=== PATIENT | male | born 1935 | race Caucasian/White ===

== ENCOUNTER 2018-12-26 17:08 | Inpatient (IN) ==
[2018-12-26] MEDS ORDERED: Morphine Sulfate Inj 2 MG/ML Vial IV.PUSH ONE ×2 (19:11→20:45)
--- NOTE | 2018-12-26 19:28 | ED ---
HPI General Chief complaint: Urogenital-Male Stated complaint: bleeding complaint Time Seen by Provider: 12/26/18 18:52 Source: patient, RN notes reviewed and old records reviewed Mode of arrival: ambulatory Limitations: no limitations History of Present Illness HPI Narrative: 83-year-old male presents to the emergency department stating that he has bleeding from his penis and has been unable to urinate since 10 AM this morning. He had his left nephrostomy tube replaced today by Dr. Bustillos. Patient states he is due to have his left kidney removed by Dr. Voss on Monday. Reports bladder distention, current pain is 8/10. Patient has a mass of the left ureter with hydronephrosis and that is why he has nephrostomy tube. He states his suspect of his bladder cancer. He is not currently undergoing chemoradiation therapy. He states he had radiation therapy in the past for prostate cancer. Patient states he was given 3 days of Cipro, his last one was today. He has history of hypertension, hyperlipidemia currently on lisinopril and simvastatin. Moderate severity. MD Complaint: Reports other (Penile bleeding, urinary retention) Onset (ago): hour(s) (9) Duration: constant Location: Reports penis Severity: moderate Severity scale (1-10): 9 Quality: Reports aching Relieving factors: none Exacerbating factors: none Reports recent surgery Reports urinary retention; Denies discharge, swelling, mass, rash, blood in urine, dysuria, fever, nausea/vomiting and incontinence Related Data Home Medications Medication Instructions Recorded Confirmed lisinopril 20 mg PO DAILY 10/24/18 12/26/18 simvastatin 10 mg PO QPM 10/24/18 12/26/18 Previous Rx's Medication Instructions Recorded hydrocodone-acetaminophen [[place]] 1 tab PO Q4-6H PRN #10 tab 12/06/18 Allergies Allergy/AdvReac Type Severity Reaction Status Date / Time No Known Allergies Allergy Verified 12/06/18 16:57 Review of Systems ROS: all other systems reviewed are negative [facility] Medical History Medical History Gastric cancer (Acute) High cholesterol (Acute) Hydronephrosis (Acute) Hypertension (Acute) Melanoma (Acute) Prostate cancer (Acute) Social History Social History Substance History: No History of Abuse Second Hand Smoke Exposure: No Smoking Status: Never smoker Tobacco Type: Cigarettes How Often Do You Have a Drink Containing Alcohol: Never Recent Travel in [place] within the Last 8 Weeks: No Recent Out of Country Travel within the Last 8 Weeks: No Immunization History Tetanus Immunization: <5 Years Exam Narrative Exam Narrative: GENERAL: Well-nourished, well-developed elderly male patient, afebrile SKIN: Focused skin assessment warm/dry. HEAD: Normocephalic. Atraumatic EYES: No scleral icterus. No injection or drainage. NECK: Supple, trachea midline. No JVD or lymphadenopathy. CARDIOVASCULAR: Regular rate and rhythm without murmurs, gallops, or rubs. RESPIRATORY: Breath sounds equal bilaterally. No accessory muscle use. Lung sounds are clear to auscultation GASTROINTESTINAL: Abdomen soft, non-tender, nondistended. Patient has left nephrostomy tube in place. Bladder is distended on exam. MUSCULOSKELETAL: No cyanosis, or edema. BACK: Nontender without obvious deformity. No CVA tenderness. Course Initial Documented Vital Signs Temperature 98.1 F 12/26/18 17:16 Pulse Rate 103 H 12/26/18 17:16 Respiratory Rate 20 12/26/18 17:16 Blood Pressure 122/55 L 12/26/18 17:16 Pulse Oximetry 96 12/26/18 17:16 Last Documented Vital Signs Temperature 98.1 F 12/26/18 17:16 Pulse Rate 110 H 12/26/18 21:30 Respiratory Rate 20 12/26/18 21:30 Blood Pressure 176/91 H 12/26/18 21:30 Pulse Oximetry 98 12/26/18 21:30 Medical Decision Making [facility] Narrative Medical decision making narrative: 83-year-old male presents to the emergency department for evaluation of urinary retention, penile bleeding that started at 10 AM this morning after having his left nephrostomy tube changed today. Shipley catheter is placed. CBC shows slight anemia hemoglobin 10.7, hematocrit 32.0. CMP shows elevated BUN 19, creatinine 1.40. PTT is 31.4. PT is 11.3, INR 1.1. UA shows large occult blood. Patient had a Shipley placed, but the Shipley continues to become clogged with blood clots. CT the abdomen/pelvis shows grossly stable left-sided nephrostomy catheter with atrophic left kidney, bladder is moderately distended despite Shipley catheter and contains high density material likely reflecting blood products as contrast injected for nephrostomy exchange earlier today likely did not extend to the bladder in such volume, a 4.0 x 3.5 cm mass in the region of the left UVJ persists. Additional stable ancillary findings as above. Patient is started on continuous bladder irrigation with a three-way Shipley catheter. I discussed the case with Dr. Voss who agrees and has no new orders at this time. Patient is admitted to hospitalist. Medical Screen Exam Complete: Yes Emergency Medical Condition: Yes Differential Diagnosis Differential Diagnosis: urinary retention vs. UTI vs. bladder CA vs. anemia vs. nephrolithiasis Medical Records Medical records reviewed: Yes I reviewed the patient's medical records. Lab Data Result diagrams: 12/26/18 19:20 12/26/18 20:20 Lab Results 12/26/18 12/26/18 12/26/18 Range/Units 19:20 19:20 19:53 WBC 9.6 (4.0-11.0) th/mm3 RBC 3.48 L (4.50-5.90) mil/mm3 Hgb 10.7 L (13.0-17.0) gm/dL Hct 32.0 L (39.0-51.0) % MCV 91.9 (80.0-100.0) fL MCH 30.7 (27.0-34.0) pg MCHC 33.4 (32.0-36.0) % RDW 14.9 (11.6-17.2) % Plt Count 375 (150-450) th/mm3 MPV 6.6 L (7.0-11.0) fL Neut % (Auto) 76.9 H (16.0-70.0) % Lymph % (Auto) 11.9 (9.0-44.0) % Chambers % (Auto) 9.8 H (0.0-8.0) % Eos % (Auto) 0.8 (0.0-4.0) % Baso % (Auto) 0.6 (0.0-2.0) % Neut # (Auto) 7.4 (1.8-7.7) th/mm3 Lymph # (Auto) 1.1 (1.0-4.8) th/mm3 Chambers # (Auto) 0.9 (0.0-0.9) th/mm3 Eos # (Auto) 0.1 (0.0-0.4) th/mm3 Baso # (Auto) 0.1 (0.0-0.2) th/mm3 WBC Differential . Differential Comment Auto diff final PT (9.8-11.6) sec INR Ratio APTT (23.4-31.7) sec Sodium (136-145) meq/L Potassium (3.5-5.1) meq/L Chloride (98-107) meq/L Carbon Dioxide (21.0-32.0) meq/L Anion Gap (5-15) meq/L BUN (7-18) mg/dL Creatinine (0.60-1.30) mg/dL Estimated GFR (>89) mL/min Random Glucose (74-106) mg/dL Calcium (8.5-10.1) mg/dL Magnesium Cancelled Total Bilirubin (0.2-1.0) mg/dL AST (15-37) U/L ALT (12-78) U/L Alkaline Phosphatase (45-117) U/L Total Protein (6.4-8.2) g/dL Albumin (3.4-5.0) g/dL Urine Color Red (Yellw/Straw) Urine Clarity Marked H (Clear) Urine pH 7.0 (5.0-8.5) Ur Specific [place] 1.020 (1.002-1.035) Urine Protein 500 or greater (Neg-Trace) mg/dL Urine Glucose (UA) 50 (Negative) mg/dL Urine Ketones Negative (Negative) mg/dL Urine Occult Blood Large H (Negative) Urine Nitrate Negative (Negative) Urine Bilirubin Negative (Negative) Urine Urobilinogen Less than 2 (Less than 2) mg/dL Ur Leukocyte Esterase Negative (Negative) Urine RBC (0-3) /hpf Urine WBC 4 (0-5) /hpf Micro UA Comment Cath-culture not ind Ur Microscopic Review Not Reportable Urine Culture Comments Cath-cult not ind 12/26/18 12/26/18 Range/Units 20:20 20:20 WBC (4.0-11.0) th/mm3 RBC (4.50-5.90) mil/mm3 Hgb (13.0-17.0) gm/dL Hct (39.0-51.0) % MCV (80.0-100.0) fL MCH (27.0-34.0) pg MCHC (32.0-36.0) % RDW (11.6-17.2) % Plt Count (150-450) th/mm3 MPV (7.0-11.0) fL Neut % (Auto) (16.0-70.0) % Lymph % (Auto) (9.0-44.0) % Chambers % (Auto) (0.0-8.0) % Eos % (Auto) (0.0-4.0) % Baso % (Auto) (0.0-2.0) % Neut # (Auto) (1.8-7.7) th/mm3 Lymph # (Auto) (1.0-4.8) th/mm3 Chambers # (Auto) (0.0-0.9) th/mm3 Eos # (Auto) (0.0-0.4) th/mm3 Baso # (Auto) (0.0-0.2) th/mm3 WBC Differential Differential Comment PT 11.3 (9.8-11.6) sec INR 1.1 Ratio APTT 31.4 (23.4-31.7) sec Sodium 135 L (136-145) meq/L Potassium 4.2 (3.5-5.1) meq/L Chloride 103 (98-107) meq/L Carbon Dioxide 24.0 (21.0-32.0) meq/L Anion Gap 8 (5-15) meq/L BUN 19 H (7-18) mg/dL Creatinine 1.40 H (0.60-1.30) mg/dL Estimated GFR 49 L (>89) mL/min Random Glucose 110 H (74-106) mg/dL Calcium 9.1 (8.5-10.1) mg/dL Magnesium 2.2 Total Bilirubin 0.6 (0.2-1.0) mg/dL AST 17 (15-37) U/L ALT 16 (12-78) U/L Alkaline Phosphatase 71 (45-117) U/L Total Protein 7.1 (6.4-8.2) g/dL Albumin 3.0 L (3.4-5.0) g/dL Urine Color (Yellw/Straw) Urine Clarity (Clear) Urine pH (5.0-8.5) Ur Specific [place] (1.002-1.035) Urine Protein (Neg-Trace) mg/dL Urine Glucose (UA) (Negative) mg/dL Urine Ketones (Negative) mg/dL Urine Occult Blood (Negative) Urine Nitrate (Negative) Urine Bilirubin (Negative) Urine Urobilinogen (Less than 2) mg/dL Ur Leukocyte Esterase (Negative) Urine RBC (0-3) /hpf Urine WBC (0-5) /hpf Micro UA Comment Ur Microscopic Review Urine Culture Comments Imaging Data Radiologist's impression: Abdomen/Pelvis CT 12/26/18 19:11 CONCLUSION: 1. Grossly stable left sided nephrostomy catheter with atrophic left kidney. 2. Bladder is moderately distended despite Shipley catheter and contains high density material likely reflecting blood products as contrast injected for nephrostomy exchange earlier today likely did not extend to the bladder in such volume. A 4.0 x 3.5 cm mass in the region of the left UVJ persists. 3. Additional stable ancillary findings, as above. Discharge Plan Discharge Disposition Patient Disposition: ED Admit(ED Internal Use Only) Discharge Order Discharge Orders: ED Use Only Admit Order (Routine); Ordered 12/26/18 Ordered By: Raven Mccurdy Discharge Details Diagnosis: Acute retention of urine, Gross hematuria Physicians Team ED Provider: Nathalie Dominguez ED Midlevel Provider: Raven Mccurdy Primary Care Provider: UNKNOWN, Attending Provider: Meenu Bush Other Providers: Damion Voss Discharge Interventions Interventions: Vital Signs Last Done: 12/26/18 21:30 Status ED Status: Admitted Observation Patient
[2018-12-26 19:48] LABS: Baso # (Auto) 0.1 th/mm3 (0.0-0.2); Baso % (Auto) 0.6 % (0.0-2.0); Eos # (Auto) 0.1 th/mm3 (0.0-0.4); Eos % (Auto) 0.8 % (0.0-4.0); Hemoglobin 10.7 gm/dL (13.0-17.0); Lymph # (Auto) 1.1 th/mm3 (1.0-4.8); Lymph % (Auto) 11.9 % (9.0-44.0); Mean Corpuscular HGB Conc 33.4 % (32.0-36.0); Mean Corpuscular Hemoglobin 30.7 pg (27.0-34.0); Mean Corpuscular Volume 91.9 fL (80.0-100.0); Mean Platelet Volume 6.6 fL (7.0-11.0); Mono # (Auto) 0.9 th/mm3 (0.0-0.9); Mono % (Auto) 9.8 % (0.0-8.0); Neut # (Auto) 7.4 th/mm3 (1.8-7.7); Neut % (Auto) 76.9 % (16.0-70.0); Platelet Count 375 th/mm3 (150-450); Red Blood Count 3.48 mil/mm3 (4.50-5.90); Red Cell Distribution Width 14.9 % (11.6-17.2); White Blood Count 9.6 th/mm3 (4.0-11.0)
--- NOTE | 2018-12-26 20:05 | CT ---
EXAM DATE: 12/26/2018 7:55 PM EST AGE/SEX: 83 years / Male INDICATIONS: Abdominal pain. Bleeding heavily from the penis. CLINICAL DATA: This is the patient's initial encounter. Patient reports that signs and symptoms have been present for 1 day and indicates a pain score of 8/10. MEDICAL/SURGICAL HISTORY: Carcinoma, gastric. Hypertension. Carcinoma, prostatic. Melanoma. Nephrostomy tube, left. RADIATION DOSE: 8.19 CTDI (mGy) COMPARISON: [facility] [place], CT ABDOMEN & PELVIS W/O CONTRAST, 12/06/2018. . TECHNIQUE: Multiple contiguous axial images were obtained through the abdomen. Images were obtained using multiple row detector helical technique. Using automated exposure control and adjustment of the mA and/or kV according to patient size, radiation dose was kept as low as reasonably achievable to o btain optimal diagnostic quality images. DICOM format image data is available electronically for rev iew and comparison. FINDINGS: LOWER LUNGS: Minimal groundglass opacities at the lung bases. LIVER: Stable 3.7 cm cyst in the central liver. Liver otherwise demonstrates homogeneous density wit hout significant volume loss. Gallstones again noted. SPLEEN: Homogeneous density without enlargement. PANCREAS: Grossly unremarkable. KIDNEYS: Kidneys are again asymmetrical in size with a small left kidney. There is a grossly stable left-sided pelvic tenderness nephrostomy catheter in place. Contrast is noted in the left renal colle cting system and ureter extending to the bladder from contrast injection during nephrostomy exchange earlier today. Right kidney is stable without hydronephrosis. ADRENAL GLANDS: Unremarkable. AORTA: Cathy-aneurysmal. BOWEL/MESENTERY: Moderate sigmoid diverticulosis and scattered colonic diverticula. No significant i nflammatory change to suggest diverticulitis. Postsurgical features are noted in the left lower quadr ant as well as the distal stomach. Bowel loops are otherwise stable in caliber without evidence for p neumatosis or free air. No free fluid or drainable fluid collections. ABDOMINAL WALL: Intact. BLADDER: There is a Shipley catheter in the bladder. Redemonstration of a 4.0 x 3.5 cm mass in the reg ion of the left UVJ. High density material within the bladder likely reflects blood products as contr ast injected in the left kidney for nephrostomy exchange would likely not extended to the bladder in such volume. REPRODUCTIVE: Grossly unremarkable. BONY STRUCTURES: Degenerative changes of the lower lumbar spine. CONCLUSION: 1. Grossly stable left sided nephrostomy catheter with atrophic left kidney. 2. Bladder is moderately distended despite Shipley catheter and contains high density material likely reflecting blood products as contrast injected for nephrostomy exchange earlier today likely did not extend to the bladder in such volume. A 4.0 x 3.5 cm mass in the region of the left UVJ persists. 3. Additional stable ancillary findings, as above. Electronically signed by: Pb Calhoun MD Board Certified Radiologist 12/26/2018 8:04 PM EST
[2018-12-26 20:20] LABS: Bilirubin,Urine Negative (Negative); Color,Urine Red (Yellw/Straw); Glucose,Urine (UA) 50 mg/dL (Negative); Leukocyte Esterase,Urine Negative (Negative); Nitrite,Urine Negative (Negative)
[2018-12-26 20:21] LABS: Clarity,Urine Marked (Clear)
[2018-12-26 20:54] LABS: Activated Partial Thrombo Time 31.4 sec (23.4-31.7); INR 1.1 Ratio; Prothrombin Time 11.3 sec (9.8-11.6)
[2018-12-26 20:57] LABS: Alanine Aminotransferase 16 U/L (12-78); Anion Gap 8 meq/L (5-15); Aspartate Aminotransferase 17 U/L (15-37); Blood Urea Nitrogen 19 mg/dL (7-18); Calcium 9.1 mg/dL (8.5-10.1); Chloride 103 meq/L (98-107); Glomerular Filtration Rate 49 mL/min (>89); Glucose,Random 110 mg/dL (74-106); Magnesium 2.2 mg/dL (1.5-2.5); Potassium 4.2 meq/L (3.5-5.1); Sodium 135 meq/L (136-145)
[2018-12-26 21:00] LABS: Alkaline Phosphatase 71 U/L (45-117); Total Protein 7.1 g/dL (6.4-8.2)
[2018-12-26] MEDS ORDERED: Bisacodyl 10 MG Supp RECTAL PRN (21:40)
[2018-12-26] MEDS ORDERED: Acetaminophen 325 MG Tablet PO PRN (21:40)
[2018-12-26] MEDS: Morphine Inj 4 MG/ML Vial IV.PUSH PRN (22:17)
[2018-12-27 01:29] LABS: Hematocrit 28.5 % (39.0-51.0); Hemoglobin 9.6 gm/dL (13.0-17.0)
[2018-12-27] MEDS: Sod Chloride 0.9% Inj 1,000 ML IV.CONT SCH ×2 (01:49→12:18)
--- NOTE | 2018-12-27 05:11 | P.HPIM ---
History of Present Illness Primary Care Physician: UNKNOWN 83-year-old male with a past medical history significant for renal cancer, hypertension, hyperlipidemia, history of prostate cancer and history of stomach cancer presents to the emergency department for the evaluation of pubic pressure. The patient have his left nephrostomy tube replaced yesterday by Dr. Bustillos. He is scheduled to undergo a left nephrectomy on Monday with Dr. Voss. The patient reported pelvic pain and pressure secondary to bladder distention and came to the emergency department for further evaluation. He also stated that he had significant blood draining from his penis. The patient denies any chest pain or shortness of breath. No nausea/vomiting/diarrhea. No fever/chills. No focal neurologic deficits. Inpatient Certification Inpatient Certification: I certify that the inpatient services were ordered in accordance with Medicare regulations governing the order. This includes certification that hospital inpatient services are reasonable and necessary and in the case of services not specified as inpatient-only under 42 CFR 419.22(n), that they are appropriately provided as inpatient services in accordance to with the 2-midnight benchmark under 43 CFR 412.3(e) Estimated Total Length of Stay (Days): 3 Plans for Post Hospital Care: Not yet determined Review of Systems Review of Systems: all other systems reviewed are negative [facility] Medical History Medical History Gastric cancer (Acute) Melanoma (Acute) Prostate cancer (Acute) High cholesterol (Acute) Hydronephrosis (Acute) Hypertension (Acute) Surgical History Surgical History History of gastric surgery (Acute) Family History Family History Other Coronary artery disease Social History Social History Substance History: No History of Abuse Second Hand Smoke Exposure: No Smoking Status: Former smoker Tobacco Type: Cigarettes How Often Do You Have a Drink Containing Alcohol: Never Recent Travel in [facility] within the Last 8 Weeks: No Recent Out of Country Travel within the Last 8 Weeks: No Immunization History Tetanus Immunization: <5 Years Medications and Allergies Allergies Allergy/AdvReac Type Severity Reaction Status Date / Time No Known Allergies Allergy Verified 12/26/18 23:50 Home Medications Medication Instructions Recorded Confirmed Type lisinopril 20 mg PO DAILY 10/24/18 12/26/18 History simvastatin 10 mg PO QPM 10/24/18 12/26/18 History loratadine 10 mg PO DAILY 12/26/18 12/26/18 History Active Medications: Active Medications Acetaminophen (Tylenol) 650 mg PO Q4H PRN PRN Reason: Temp > 100.4 Al Hydroxide/Mg Hydroxide (Milk Of Magnesia Liq) 30 ml PO Q12H PRN PRN Reason: Mild Constipation Bisacodyl (Dulcolax Supp) 10 mg RECTAL DAILY PRN PRN Reason: SEVERE CONSITIPATION Sodium Chloride (Ns Inj) 1,000 mls @ 70 mls/hr IV.CONT .[id number] RUCHI Last Admin: 12/27/18 01:49 Dose: 70 mls/hr Lactulose (Lactulose Liq) 30 ml PO DAILY PRN PRN Reason: SEVERE CONSITIPATION Morphine Sulfate (Morphine Inj) 4 mg IV.PUSH Q4H PRN PRN Reason: PAIN SCALE 6 TO 10 Last Admin: 12/26/18 22:17 Dose: 4 mg Ondansetron HCl (Zofran Inj) 4 mg IV.PUSH Q6H PRN PRN Reason: NAUSEA OR VOMITING Senna/Docusate Sodium (Ciara-Colace) 1 tab PO BID [facility] Sennosides (Senokot) 17.2 mg PO Q12H PRN PRN Reason: Moderate Constipation Sodium Chloride (Ns Flush) 2 ml IV.FLUSH BID [facility] Sodium Chloride (Ns Flush) 2 ml IV.FLUSH PRN PRN PRN Reason: FLUSH AFTER USING IV ACCESS Physical Exam Vital signs: Vital Signs 12/26/18 17:16 12/26/18 18:55 12/26/18 19:11 Temperature 98.1 F Pulse Rate 103 H 93 H 91 H Respiratory Rate 20 18 18 Blood Pressure 122/55 L 147/65 H 123/70 Pulse Oximetry 96 98 98 12/26/18 21:00 12/26/18 21:30 12/26/18 23:10 Temperature Pulse Rate 110 H Respiratory Rate 20 20 18 Blood Pressure 176/91 H Pulse Oximetry 98 12/26/18 23:30 12/26/18 23:52 12/27/18 01:07 Temperature 97.6 F Pulse Rate 106 H 109 H 113 H Respiratory Rate 18 18 17 Blood Pressure 172/79 H 124/75 146/81 H Pulse Oximetry 98 95 93 L Intake & Output 12/26/18 12/26/18 12/27/18 06:59 18:59 06:59 Weight 72.575 kg 72.575 kg Other: Bladder Irrigation Fluid - Amount Instilled Indwelling Urethral Catheter 3,000 Bladder Irrigation Fluid - Amount Drained Indwelling Urethral Catheter 3,000 Date of Last Bowel Movement 12/25/18 Weight On Admission 72.575 kg Narrative: Gen.: No acute distress Head: Normocephalic. Atraumatic. EENT: Pupils equal round and reactive to light. Nose without drainage. Airway intact. Throat without injection. Cardiovascular: Regular rate and rhythm. No murmurs, rubs or gallops. Respiratory: Lungs clear to auscultation bilaterally. No wheezes or rhonchi. Abdomen: Soft, nontender, nondistended. No peritoneal signs. : Shipley in place undergoing CBI with bloody urine. Left nephrostomy tube in place. Musculoskeletal: No gross deformities. No edema. Skin: No obvious rashes or erythema. Neuro: Sensory and motor grossly intact. Cranial nerves II through XII grossly intact. Urinary Catheter Management Indwelling Urethral Catheter: Cath placed during this visit: yes Reason for continuing: Gross Hematuria Insertion date: 12/26/18 Insertion time: 19:00 Results Labs CBC & Chem 7: 12/27/18 01:18 12/26/18 20:20 Imaging Impressions Abdomen/Pelvis CT 12/26/18 19:11 CONCLUSION: 1. Grossly stable left sided nephrostomy catheter with atrophic left kidney. 2. Bladder is moderately distended despite Shipley catheter and contains high density material likely reflecting blood products as contrast injected for nephrostomy exchange earlier today likely did not extend to the bladder in such volume. A 4.0 x 3.5 cm mass in the region of the left UVJ persists. 3. Additional stable ancillary findings, as above. Caprini VTE Risk Assessment Caprini VTE Risk Assessment: Moderate/High Risk (score >= 2) Caprini Risk Assessment Model: Point Value = 1 Point Value = 2 Point Value = 3 Point Value = 5 Age 41-60 Minor surgery BMI > 25 kg/m2 Swollen legs Varicose veins or History of unexplained or recurrent spontaneous Oral contraceptives or hormone replacement Sepsis (< 1 month) Serious lung disease, including pneumonia (< 1 month) Abnormal pulmonary function Acute myocardial infarction Congestive heart failure (< 1 month) History of inflammatory bowel disease Medical patient at bed rest Age 61-74 Arthroscopic surgery Major open surgery (> 45 min) Laparoscopic surgery (> 45 min) Malignancy Confined to bed (> 72 hours) Immobilizing plaster cast Central venous access Age >= 75 History of VTE Family history of VTE Factor V Leiden Prothrombin [id number] Lupus anticoagulant Anticardiolipin antibodies Elevated serum homocysteine Heparin-induced thrombocytopenia Other congenital or acquired thrombophilia Stroke (< 1 month) Elective arthroplasty Hip, pelvis, or leg fracture Acute spinal cord injury (< 1 month) Prophylaxis Regimen: Total Risk Factor Score Risk Level Prophylaxis Regimen 0-1 Low Early ambulation 2 Moderate Order ONE of the following: *Sequential Compression Device (SCD) *Heparin 5000 units SQ BID 3-4 Higher Order ONE of the following medications: *Heparin 5000 units SQ TID *Enoxaparin/Lovenox 40 mg SQ daily (WT < 150 kg, CrCl > 30 mL/min) *Enoxaparin/Lovenox 30 mg SQ daily (WT < 150 kg, CrCl > 10-29 mL/min) *Enoxaparin/Lovenox 30 mg SQ BID (WT < 150 kg, CrCl > 30 mL/min) AND/OR *Sequential Compression Device (SCD) 5 or more Highest Order ONE of the following medications: *Heparin 5000 units SQ TID (Preferred with Epidurals) *Enoxaparin/Lovenox 40 mg SQ daily (WT < 150 kg, CrCl > 30 mL/min) *Enoxaparin/Lovenox 30 mg SQ daily (WT < 150 kg, CrCl > 10-29 mL/min) *Enoxaparin/Lovenox 30 mg SQ BID (WT < 150 kg, CrCl > 30 mL/min) AND *Sequential Compression Device (SCD) Assessment and Plan Plan Assessment/plan: 1. Urinary retention/hematuria Patient started on continuous bladder irrigation Urology consulted, appreciate assistance Every 6 hours H&H as patient continuing to bleed Transfuse as needed 2. Renal cancer Urology consulted as above Plan was for left nephrectomy on Monday 3. Hypertension/hyperlipidemia Continue home medications FEN N.p.o. Electrolytes: Monitor and replete as needed NS at 70 cc/hr Holding pharmacologic anticoagulation for hematuria H&P: Quality VTE Deep Vein Thrombosis/Pulmonary Embolism Present on Admission: No
[2018-12-27] MEDS: Morphine Inj 4 MG/ML Vial IV.PUSH PRN (06:31)
[2018-12-27 07:48] LABS: Baso % (Auto) 0.3 % (0.0-2.0); Eos % (Auto) 0.2 % (0.0-4.0); Hematocrit 29.1 % (39.0-51.0); Hemoglobin 9.8 gm/dL (13.0-17.0); Lymph # (Auto) 1.3 th/mm3 (1.0-4.8); Lymph % (Auto) 10.4 % (9.0-44.0); Mean Corpuscular HGB Conc 33.6 % (32.0-36.0); Mean Corpuscular Hemoglobin 30.8 pg (27.0-34.0); Mean Corpuscular Volume 91.7 fL (80.0-100.0); Mean Platelet Volume 6.1 fL (7.0-11.0); Neut # (Auto) 10.2 th/mm3 (1.8-7.7); Neut % (Auto) 81.1 % (16.0-70.0); Platelet Count 415 th/mm3 (150-450); Red Blood Count 3.18 mil/mm3 (4.50-5.90); Red Cell Distribution Width 14.2 % (11.6-17.2); White Blood Count 12.5 th/mm3 (4.0-11.0)
[2018-12-27 08:04] LABS: Calcium 8.8 mg/dL (8.5-10.1); Carbon Dioxide 23.3 meq/L (21.0-32.0); Potassium 4.5 meq/L (3.5-5.1)
[2018-12-27] MEDS ORDERED: HYDROmorphone PF Inj 1 MG/ML Ampul IV.PUSH PRN (08:39)
[2018-12-27] MEDS: Senna/Docusate Sodium 8.6/50 MG Tablet PO SCH ×2 (09:14→21:42)
--- NOTE | 2018-12-27 10:15 | P.PNIM ---
Subjective Interval history: Follow-up for hematuria, abdominal pain. Patient reports feeling miserable this morning. He reports continued constant 10/10 diffuse abdominal pains described as pressure pain and fullness, associated with lightheadedness and nausea but no vomiting. No documented fevers however the patient reports feeling hot and sweaty at times. He states the morphine did not relieve his pain, RN now administering IV Dilaudid. He has continued hematuria in Shipley bag. RN reports last clots seen around 6 AM this morning. No other medical complaints reported at this time. Physical Exam Vital signs: Vital Signs 12/26/18 17:16 12/26/18 18:55 12/26/18 19:11 Temperature 98.1 F Pulse Rate 103 H 93 H 91 H Respiratory Rate 20 18 18 Blood Pressure 122/55 L 147/65 H 123/70 Pulse Oximetry 96 98 98 12/26/18 21:00 12/26/18 21:30 12/26/18 23:10 Temperature Pulse Rate 110 H Respiratory Rate 20 20 18 Blood Pressure 176/91 H Pulse Oximetry 98 12/26/18 23:30 12/26/18 23:52 12/27/18 01:07 Temperature 97.6 F Pulse Rate 106 H 109 H 113 H Respiratory Rate 18 18 17 Blood Pressure 172/79 H 124/75 146/81 H Pulse Oximetry 98 95 93 L 12/27/18 03:30 12/27/18 04:00 12/27/18 06:35 Temperature 97.9 F Pulse Rate 114 H 103 H Respiratory Rate 16 20 Blood Pressure 119/69 Pulse Oximetry 94 L 12/27/18 08:00 Temperature 97.3 F L Pulse Rate 116 H Respiratory Rate 20 Blood Pressure 139/75 Pulse Oximetry 94 L Intake & Output 12/26/18 12/27/18 12/27/18 18:59 06:59 18:59 Intake Total 0 / 0 Output Total 1000 / 1000 Balance -1000 / -1000 Weight 72.575 kg 72.575 kg Intake: Bladder Irrigation Fluid - 0 / 0 Amount Retained Indwelling Urethral Catheter 0 / 0 Output: Urine 1000 / 1000 Other: Bladder Irrigation Fluid - Amount Instilled Indwelling Urethral Catheter 3,000 6,000 Bladder Irrigation Fluid - Amount Drained Indwelling Urethral Catheter 3,000 7,000 Date of Last Bowel Movement 12/25/18 Weight On Admission 72.575 kg Narrative: GENERAL: Well-nourished, well-developed elderly male patient in mild distress secondary to pain. SKIN: Warm. No rash. Slightly diaphoretic. HEENT: Normocephalic. Atraumatic. Pupils equal and round. Mucous membranes pink and moist. CARDIOVASCULAR: Regular rate and rhythm. No murmur appreciated. RESPIRATORY: No accessory muscle use. Clear to auscultation. Breath sounds equal bilaterally. GASTROINTESTINAL: Abdomen soft, non-tender, nondistended. Normoactive bowel sounds x4. GENITOURINARY: Left nephrostomy tube in place. Shipley in place, CBI ongoing, hematuria without obvious clots. MUSCULOSKELETAL: No obvious deformities. Extremities without clubbing, cyanosis , or edema. NEUROLOGICAL: Awake and alert. No obvious cranial nerve deficits. Motor grossly within normal limits. Moving all extremities spontaneously. Normal speech. PSYCHIATRIC: Appropriate mood and affect; insight and judgment normal. Urinary Catheter Management Indwelling Urethral Catheter: Cath placed during this visit: yes Reason for continuing: Gross Hematuria Insertion date: 12/26/18 Insertion time: 19:00 Results Labs CBC & Chem 7: 12/27/18 07:27 12/27/18 07:27 Imaging Imaging: Impressions Abdomen/Pelvis CT 12/26/18 19:11 CONCLUSION: 1. Grossly stable left sided nephrostomy catheter with atrophic left kidney. 2. Bladder is moderately distended despite Shipley catheter and contains high density material likely reflecting blood products as contrast injected for nephrostomy exchange earlier today likely did not extend to the bladder in such volume. A 4.0 x 3.5 cm mass in the region of the left UVJ persists. 3. Additional stable ancillary findings, as above. Assessment and Plan Plan 83-year-old male with a past medical history significant for renal cancer, hypertension, hyperlipidemia, history of prostate cancer and history of stomach cancer presents to the emergency department for the evaluation of pubic pressure. The patient have his left nephrostomy tube replaced yesterday by Dr. Bustillos. He is scheduled to undergo a left nephrectomy on Monday with Dr. Voss. Acute urinary retention/hematuria: Status post left nephrostomy tube placed yesterday by Dr. Bustillos. -CT abdomen/pelvis reviewed, shows Grossly stable left sided nephrostomy catheter with atrophic left kidney; Bladder is moderately distended despite Shipley catheter and contains high density material likely reflecting blood products as contrast injected for nephrostomy exchange earlier today likely did not extend to the bladder in such volume. A 4.0 x 3.5 cm mass in the region of the left UVJ persists. -Urinalysis reviewed and unremarkable -Shipley in place -Continue on CBI -Monitor H&H, hemoglobin 10.7 --> 9.6 --> 9.8, transfuse as needed -Pain control with IV Dilaudid as needed -Consult urology, appreciate recommendations -Keep NPO for now Renal cancer: Seen on CT as above, was planning for left nephrectomy on 01/[address] Soto -Urology consulted as above -Continue pain control LOIS: Creatinine 1.72 today, previously 1.26 on 11/21/18. Suspect postrenal secondary to obstruction with mass and hematuria/clots. -Give IV fluid hydration -Avoid nephrotoxins, holding patient's lisinopril for now -Monitor BMP -Maintain Shipley, monitor I's and O's Hypertension/hyperlipidemia: Chronic, BP slightly elevated upon arrival likely secondary to pain -Holding patient's lisinopril for now with LOIS -Continue patient's statin -Monitor BP, add antihypertensives as needed Atypical chest pain/tachycardia: Patient with some pain radiating up to the epigastric and substernal region, tachycardic on telemetry -Suspect pain/tachycardia secondary to above -Trend troponins, CK, and EKG -Monitor on telemetry, showing sinus tachycardia with occasional PVCs -Pain control with IV Dilaudid as needed DVT prophylaxis: Teds/SCDs; avoid chemical prophylaxis with hematuria Progress Note: Quality VTE Deep Vein Thrombosis/Pulmonary Embolism Present on Admission: No
[2018-12-27] MEDS: HYDROmorphone PF Inj 1 MG/ML Ampul IV.PUSH PRN (12:57)
--- NOTE | 2018-12-27 12:57 | P.CONURO ---
History of Present Illness Service: Consult date: 12/27/18 Requesting Physician: Neri Walden Reason for Consult: Gross hematuria Primary Care Provider: UNKNOWN History of Present Illness: 83-year-old gentleman with history of prostate cancer diagnosed in 1992 and status post radiation therapy as well as having an atrophic left kidney along with a tumor mass involving the left distal ureter who presented to the emergency room with gross hematuria that developed soon after having his left nephrostomy tube changed out. CBI was implemented and a urology consult placed. Patient is scheduled to undergo a robot-assisted laparoscopic left nephro ureterectomy next Monday for definitive management of the left distal ureteral tumor mass. Prior to having the nephrostomy tube changed out, the patient reported that he was voiding clear yellow urine. At the time of consultation the patient was complaining of severe pain involving the lower abdomen. CBI was running with light pink output. Review of Systems All other systems reviewed negative except as stated in HPI PMFSH - History History Provided By: Patient - Medical History Medical History: Medical History (Last Reviewed 12/27/18 @ 05:06 by Meenu Bush MD) Gastric cancer Melanoma Prostate cancer High cholesterol Hydronephrosis Hypertension - Surgical History Surgical History: Surgical History (Last Updated 12/27/18 @ 05:06 by Meenu Bush MD) History of gastric surgery - Family History Family History: Family History (Last Reviewed 11/21/18 @ 14:35 by Pricilla Estrada DO) Other Coronary artery disease - Tobacco History Second Hand Smoke Exposure: No Smoking Status: Former smoker Tobacco Type: Cigarettes - Alcohol History How Often Do You Have a Drink Containing Alcohol: Never - Substance Use History Substance History: No History of Abuse - Travel History Recent Travel in the [place] Within the Last 8 Weeks: No Recent Travel Out of the Country Within the Last 8 Weeks: No - Immunization History Tetanus Immunization: <5 Years Medications and Allergies Active Medications: Active Medications Acetaminophen (Tylenol) 650 mg PO Q4H PRN PRN Reason: Temp > 100.4 Al Hydroxide/Mg Hydroxide (Milk Of Magnesia Liq) 30 ml PO Q12H PRN PRN Reason: Mild Constipation Bisacodyl (Dulcolax Supp) 10 mg RECTAL DAILY PRN PRN Reason: SEVERE CONSITIPATION Hydromorphone HCl (Dilaudid Pf Inj) 1 mg IV.PUSH Q2H PRN PRN Reason: SEVERE PAIN 6-10 Sodium Chloride (Ns Inj) 1,000 mls @ 70 mls/hr IV.CONT .[id number] [facility] Last Admin: 12/27/18 12:18 Dose: 70 mls/hr Lactulose (Lactulose Liq) 30 ml PO DAILY PRN PRN Reason: SEVERE CONSITIPATION Loratadine (Claritin) 10 mg PO DAILY [facility] Ondansetron HCl (Zofran Inj) 4 mg IV.PUSH Q6H PRN PRN Reason: NAUSEA OR VOMITING Last Admin: 12/27/18 12:21 Dose: 4 mg Oxybutynin Chloride (Ditropan) 5 mg PO BID [facility] Last Admin: 12/27/18 09:14 Dose: 5 mg Pravastatin Sodium (Pravachol) 20 mg PO DAILY@1800 [facility] Senna/Docusate Sodium (Ciara-Colace) 1 tab PO BID [facility] Last Admin: 12/27/18 09:14 Dose: 1 tab Sennosides (Senokot) 17.2 mg PO Q12H PRN PRN Reason: Moderate Constipation Sodium Chloride (Ns Flush) 2 ml IV.FLUSH BID [facility] Last Admin: 12/27/18 09:14 Dose: Not Given Sodium Chloride (Ns Flush) 2 ml IV.FLUSH PRN PRN PRN Reason: FLUSH AFTER USING IV ACCESS Allergies Allergy/AdvReac Type Severity Reaction Status Date / Time No Known Allergies Allergy Verified 12/26/18 23:50 Home Medications Medication Instructions Recorded Confirmed Type lisinopril 20 mg PO DAILY 10/24/18 12/26/18 History simvastatin 10 mg PO QPM 10/24/18 12/26/18 History loratadine 10 mg PO DAILY 12/26/18 12/26/18 History Physical Exam Vital Signs - 24 hr 12/26/18 17:16 12/26/18 18:55 12/26/18 19:11 Temperature 98.1 F Pulse Rate 103 H 93 H 91 H Respiratory Rate 20 18 18 Blood Pressure 122/55 L 147/65 H 123/70 Pulse Oximetry 96 98 98 12/26/18 21:00 12/26/18 21:30 12/26/18 23:10 Temperature Pulse Rate 110 H Respiratory Rate 20 20 18 Blood Pressure 176/91 H Pulse Oximetry 98 12/26/18 23:30 12/26/18 23:52 12/27/18 01:07 Temperature 97.6 F Pulse Rate 106 H 109 H 113 H Respiratory Rate 18 18 17 Blood Pressure 172/79 H 124/75 146/81 H Pulse Oximetry 98 95 93 L 12/27/18 03:30 12/27/18 04:00 12/27/18 06:35 Temperature 97.9 F Pulse Rate 114 H 103 H Respiratory Rate 16 20 Blood Pressure 119/69 Pulse Oximetry 94 L 12/27/18 08:00 12/27/18 08:05 Temperature 97.3 F L Pulse Rate 116 H 116 H Respiratory Rate 20 Blood Pressure 139/75 Pulse Oximetry 94 L Physical Exam: GENERAL: This is a well-nourished, well-developed patient, in no apparent distress. SKIN: No rashes, ecchymoses or lesions. Cool and dry. HEAD: Atraumatic. Normocephalic. No temporal or scalp tenderness. EYES: Pupils equal round and reactive. Extraocular motions intact. No scleral icterus. No injection or drainage. ENT: Nose without bleeding, purulent drainage or septal hematoma. Throat without erythema, tonsillar hypertrophy or exudate. Uvula midline. Airway patent. NECK: Trachea midline. No JVD or lymphadenopathy. Supple, nontender, no meningeal signs. CARDIOVASCULAR: Regular rate and rhythm without murmurs, gallops, or rubs. RESPIRATORY: Clear to auscultation. Breath sounds equal bilaterally. No wheezes , rales, or rhonchi. GASTROINTESTINAL: Abdomen soft, non-tender, nondistended. No hepato-splenomegaly , or palpable masses. No guarding. GENITOURINARY: Bladder distended and tender to palpation. CBI running at a moderate rate with light pink output. MUSCULOSKELETAL: Extremities without clubbing, cyanosis, or edema. No joint tenderness, effusion, or edema noted. No calf tenderness. Negative Homans sign bilaterally. NEUROLOGICAL: Awake and alert. Cranial nerves II through XII intact. Motor and sensory grossly within normal limits. Five out of 5 muscle strength in all muscle groups. Normal speech. Laboratory Results - last 24 hr 12/26/18 12/26/18 12/26/18 19:20 19:20 19:53 WBC 9.6 RBC 3.48 L Hgb 10.7 L Hct 32.0 L MCV 91.9 MCH 30.7 MCHC 33.4 RDW 14.9 Plt Count 375 MPV 6.6 L Neut % (Auto) 76.9 H Lymph % (Auto) 11.9 Richardson % (Auto) 9.8 H Eos % (Auto) 0.8 Baso % (Auto) 0.6 Neut # (Auto) 7.4 Lymph # (Auto) 1.1 Richardson # (Auto) 0.9 Eos # (Auto) 0.1 Baso # (Auto) 0.1 WBC Differential . Differential Comment Auto diff final PT INR APTT Sodium Potassium Chloride Carbon Dioxide Anion Gap BUN Creatinine Estimated GFR Random Glucose Calcium Magnesium Cancelled Total Bilirubin AST ALT Alkaline Phosphatase Total Protein Albumin Urine Color Red Urine Clarity Marked H Urine pH 7.0 Ur Specific Marcellus 1.020 Urine Protein 500 or greater Urine Glucose (UA) 50 Urine Ketones Negative Urine Occult Blood Large H Urine Nitrate Negative Urine Bilirubin Negative Urine Urobilinogen Less than 2 Ur Leukocyte Esterase Negative Urine RBC Urine WBC 4 Micro UA Comment Cath-culture not ind Ur Microscopic Review Not Reportable Urine Culture Comments Cath-cult not ind Blood Type Blood Type Recheck Antibody Screen 12/26/18 12/26/18 12/27/18 20:20 20:20 01:18 WBC RBC Hgb 9.6 L Hct 28.5 L MCV MCH MCHC RDW Plt Count MPV Neut % (Auto) Lymph % (Auto) Richardson % (Auto) Eos % (Auto) Baso % (Auto) Neut # (Auto) Lymph # (Auto) Richardson # (Auto) Eos # (Auto) Baso # (Auto) WBC Differential Differential Comment PT 11.3 INR 1.1 APTT 31.4 Sodium 135 L Potassium 4.2 Chloride 103 Carbon Dioxide 24.0 Anion Gap 8 BUN 19 H Creatinine 1.40 H Estimated GFR 49 L Random Glucose 110 H Calcium 9.1 Magnesium 2.2 Total Bilirubin 0.6 AST 17 ALT 16 Alkaline Phosphatase 71 Total Protein 7.1 Albumin 3.0 L Urine Color Urine Clarity Urine pH Ur Specific Marcellus Urine Protein Urine Glucose (UA) Urine Ketones Urine Occult Blood Urine Nitrate Urine Bilirubin Urine Urobilinogen Ur Leukocyte Esterase Urine RBC Urine WBC Micro UA Comment Ur Microscopic Review Urine Culture Comments Blood Type Blood Type Recheck Antibody Screen 12/27/18 12/27/18 12/27/18 07:27 07:27 10:55 WBC 12.5 H RBC 3.18 L Hgb 9.8 L Hct 29.1 L MCV 91.7 MCH 30.8 MCHC 33.6 RDW 14.2 Plt Count 415 MPV 6.1 L Neut % (Auto) 81.1 H Lymph % (Auto) 10.4 Richardson % (Auto) 8.0 Eos % (Auto) 0.2 Baso % (Auto) 0.3 Neut # (Auto) 10.2 H Lymph # (Auto) 1.3 Richardson # (Auto) 1.0 H Eos # (Auto) 0.0 Baso # (Auto) 0.0 WBC Differential . Differential Comment Auto diff final PT INR APTT Sodium 138 Potassium 4.5 Chloride 106 Carbon Dioxide 23.3 Anion Gap 9 BUN 19 H Creatinine 1.72 H Estimated GFR 38 L Random Glucose 148 H Calcium 8.8 Magnesium Total Bilirubin AST ALT Alkaline Phosphatase Total Protein Albumin Urine Color Urine Clarity Urine pH Ur Specific Marcellus Urine Protein Urine Glucose (UA) Urine Ketones Urine Occult Blood Urine Nitrate Urine Bilirubin Urine Urobilinogen Ur Leukocyte Esterase Urine RBC Urine WBC Micro UA Comment Ur Microscopic Review Urine Culture Comments Blood Type O Positive Blood Type Recheck Required Antibody Screen Negative Result Diagrams: 12/27/18 07:27 12/27/18 07:27 Imaging: ITS Impressions Abdomen/Pelvis CT 12/26/18 19:11 CONCLUSION: 1. Grossly stable left sided nephrostomy catheter with atrophic left kidney. 2. Bladder is moderately distended despite Shipley catheter and contains high density material likely reflecting blood products as contrast injected for nephrostomy exchange earlier today likely did not extend to the bladder in such volume. A 4.0 x 3.5 cm mass in the region of the left UVJ persists. 3. Additional stable ancillary findings, as above. Assessment and Plan - Assessment (1) Prostate CA Code(s): C61 - Malignant neoplasm of prostate Status: Acute (2) Mass of ureter Code(s): N28.9 - Disorder of kidney and ureter, unspecified Status: Acute (3) Gross hematuria Code(s): R31.0 - Gross hematuria Status: Acute - Plan Urologic impression: 1. Urinary retention related to obstructing blood clots 2. Gross hematuria of indeterminate etiology and possibly related to the left distal ureteral tumor mass 3. Prostate cancer status post radiation therapy and presently being managed with androgen deprivation therapy Recommendations: 1. Keep the patient n.p.o. 2. We will bring the patient to the OR suite later today for cystoscopy and clot evacuation 3. Patient scheduled for a robot-assisted laparoscopic left nephroureterectomy on Monday
[2018-12-27 13:08] LABS: Troponin I 0.02 ng/mL (0.02-0.05)
[2018-12-27] MEDS: Loratadine 10 MG Tablet PO SCH (13:14)
[2018-12-27 13:29] LABS: Hematocrit 31.5 % (39.0-51.0); Hemoglobin 10.4 gm/dL (13.0-17.0)
[2018-12-27] MEDS ORDERED: Phenylephrine/NS 1000 MCG/10ML Syringe IV.PUSH ONE (14:35)
[2018-12-27] MEDS ORDERED: Metoprolol Inj 5 MG/5 ML Vial IV.PUSH ONE (14:35)
[2018-12-27] MEDS ORDERED: Sodium Chlor 0.9% Inj 500 ML IV.CONT ONE ×2 (14:35→14:45)
[2018-12-27] MEDS ORDERED: Lidocaine PF 1% Inj 5 ML Syringe OTHER ONE (14:35)
[2018-12-27] MEDS ORDERED: Glycopyrrolate Inj 1 MG/5 ML Syringe IV.PUSH ONE (14:35)
[2018-12-27] MEDS ORDERED: Neostigmine Inj 5 MG/5 ML Syringe IV.PUSH ONE (14:35)
[2018-12-27] MEDS ORDERED: Sod Chloride 0.9% Inj 1,000 ML IV.CONT ONE (14:35)
[2018-12-27] MEDS ORDERED: Metoprolol Tartrate 25 MG Tablet PO ONE (14:45)
[2018-12-27] MEDS ORDERED: Chlorhexidine Gluconate 2% 1 Pack (2 Cloths) TOPICAL ONE (14:45)
[2018-12-27 15:39] LABS: ABG Base Excess -11.1 mmol/L (-2-2); ABG PCO2 38 mmHg (38-42); ABG PO2 310 mmHG (61-120)
[2018-12-27] MEDS ORDERED: Sodium Bicarbonate 8.4% Inj 50 MEQ/50 ML Syringe ONE (15:46)
[2018-12-27 15:59] LABS: Baso % (Auto) 0.1 % (0.0-2.0); Hematocrit 25.1 % (39.0-51.0); Hemoglobin 8.2 gm/dL (13.0-17.0); Lymph # (Auto) 0.6 th/mm3 (1.0-4.8); Lymph % (Auto) 2.2 % (9.0-44.0); Mean Corpuscular HGB Conc 32.8 % (32.0-36.0); Mean Corpuscular Hemoglobin 30.8 pg (27.0-34.0); Mean Corpuscular Volume 93.8 fL (80.0-100.0); Mean Platelet Volume 6.6 fL (7.0-11.0); Mono # (Auto) 1.8 th/mm3 (0.0-0.9); Mono % (Auto) 7.1 % (0.0-8.0); Neut # (Auto) 23.1 th/mm3 (1.8-7.7); Neut % (Auto) 90.6 % (16.0-70.0); Platelet Count 473 th/mm3 (150-450); Red Blood Count 2.67 mil/mm3 (4.50-5.90); Red Cell Distribution Width 14.4 % (11.6-17.2); White Blood Count 25.5 th/mm3 (4.0-11.0)
[2018-12-27] MEDS ORDERED: fentaNYL Citrate Inj 100 MCG/2 ML Ampul ONE (16:02)
[2018-12-27 16:04] LABS: Activated Partial Thrombo Time 26.9 sec (23.4-31.7); INR 1.2 Ratio; Prothrombin Time 11.8 sec (9.8-11.6)
[2018-12-27 16:27] LABS: Calcium 7.4 mg/dL (8.5-10.1); Carbon Dioxide 17.5 meq/L (21.0-32.0); Potassium 4.3 meq/L (3.5-5.1)
[2018-12-27] MEDS ORDERED: fentaNYL Citrate Inj 250 MCG/5 ML Ampul ONE (16:31)
--- NOTE | 2018-12-27 17:01 | ECG ---
Date Performed: 12/27/2018 Time Performed: 11:37:42 PTAGE: 83 years EKG: SINUS TACHYCARDIA BORDERLINE LEFT AXIS DEVIATION POSSIBLE RIGHT VENTRICULAR CONDUCTION GISELLE Y NONSPECIFIC ST ABNORMALITY ABNORMAL RHYTHM ECG PREVIOUS TRACING : 02/04/2013 14.18 Compared to previous tracing, heart rate has increased, non specific ST abnormality is now evident. DOCTOR: Mp Bryant Interpretating Date/Time 12/27/2018 17:00:08
[2018-12-27 17:29] LABS: ABG Base Excess -6.1 mmol/L (-2-2); ABG PCO2 35 mmHg (38-42); ABG PO2 115 mmHG (61-120)
[2018-12-27 17:33] LABS: Albumin 2.4 g/dL (3.4-5.0); Calcium-Albumin Corrected 8.7 mg/dL (8.5-10.1)
--- NOTE | 2018-12-27 18:44 | P.OP ---
- Preoperative Diagnosis (1) Gross hematuria - Postoperative Diagnosis (1) Gross hematuria Date of procedure: 12/27/18 Procedure: Cystoscopy, evacuation of clots and fulguration of bladder tumor Anesthesia: GETA Surgeon: Damion Voss MD Estimated blood loss (mL): 10 Pathology: none sent Operation and Findings: Indication for procedures: Case of a pleasant 83-year-old gentleman with a history of both prostate and bladder cancer who developed gross hematuria after replacement of his left nephrostomy tube. Patient has a tumor mass involving the left distal ureter causing obstruction and has been managed with the nephrostomy tube. Patient reports that soon after the nephrostomy tube was changed he developed hematuria with clots and presented to the emergency room for further evaluation. A three-way catheter was placed and continuous bladder irrigation initiated. A urology consult was placed for further recommendations. At the time of consultation the patient was noted to have a markedly distended bladder and complained of significant suprapubic discomfort. Patient is now brought to the operating room suite for cystoscopy with clot evacuation and fulguration of any bleeding sites. Operative procedures in detail: Patient was brought to the operating room suite and placed supine on the OR table. He was then placed under general anesthesia. He was then repositioned in the dorsolithotomy position and prepped and draped in normal sterile fashion. After appropriate timeout was undertaken I proceeded with cystoscopic evaluation utilizing the rigid cystoscope with the 21 Urdu sheath and the 30 degree lens. The urethra was patent without stricture formation in the prostatic urethra was not obstructing. Further advancement of the cystoscope within the urinary bladder revealed multiple large clots. The Elik evacuator was utilized and the clots were retrieved. Cystoscopic evaluation was then continued demonstrated a large tumor mass involving the expected location of the left ureteral orifice which was nonvisualized due to the tumor mass. There were multiple tortuous blood vessels noted on the mass that were bleeding and the sites were fulgurated with coagulation current. A 20 Urdu 10 cc Shipley catheter was then placed and connected to gravity drainage. The patient tolerated the procedures without complications and was transferred to the PACU in satisfactory condition.
--- NOTE | 2018-12-27 21:08 | ECG ---
Date Performed: 12/27/2018 Time Performed: 19:07:06 PTAGE: 83 years EKG: SINUS TACHYCARDIA BORDERLINE LEFT AXIS DEVIATION POSSIBLE RIGHT VENTRICULAR CONDUCTION GISELLE Y NONSPECIFIC ST & T-WAVE ABNORMALITY ABNORMAL RHYTHM ECG PREVIOUS TRACING : 12/27/2018 11.37 Compared to previous tracing, anterior ST depression has im proved. DOCTOR: Mp Bryant Interpretating Date/Time 12/27/2018 21:07:52
[2018-12-27 21:28] LABS: Hematocrit 28.6 % (39.0-51.0); Hemoglobin 9.4 gm/dL (13.0-17.0)
[2018-12-27 21:59] LABS: Troponin I 0.06 ng/mL (0.02-0.05)
[2018-12-28] MEDS: HYDROmorphone PF Inj 1 MG/ML Ampul IV.PUSH PRN ×4 (05:54→20:57)
[2018-12-28] MEDS: Sod Chloride 0.9% Inj 1,000 ML IV.CONT SCH ×2 (06:31→10:06)
[2018-12-28] MEDS: Loratadine 10 MG Tablet PO SCH (10:06)
[2018-12-28] MEDS: Senna/Docusate Sodium 8.6/50 MG Tablet PO SCH ×2 (10:06→20:57)
--- NOTE | 2018-12-28 11:25 | P.PNIM ---
Subjective Interval history: Patient laying down in bed, says that he feels a little better today but still has some suprapubic tenderness. Physical Exam Vital signs: Vital Signs 12/27/18 12:00 12/27/18 17:00 12/27/18 17:15 Temperature 98.1 F 97.4 F L Pulse Rate 135 H 114 H 110 H Respiratory Rate 20 12 14 Blood Pressure 121/73 146/72 H 162/80 H Pulse Oximetry 95 93 L 99 12/27/18 17:30 12/27/18 17:45 12/27/18 17:49 Temperature 97.6 F Pulse Rate 106 H 111 H 109 H Respiratory Rate 17 16 13 Blood Pressure 164/76 H 150/67 H 150/67 H Pulse Oximetry 99 99 100 12/27/18 18:00 12/27/18 18:15 12/27/18 18:45 Temperature Pulse Rate 109 H 105 H 112 H Respiratory Rate 17 15 20 Blood Pressure 138/67 147/69 H 132/78 Pulse Oximetry 99 100 100 12/27/18 19:00 12/27/18 19:30 12/27/18 19:35 Temperature 98.1 F Pulse Rate 111 H 113 H 113 H Respiratory Rate 16 20 Blood Pressure 146/76 H 157/78 H Pulse Oximetry 100 100 100 12/27/18 19:45 12/27/18 20:00 12/27/18 20:15 Temperature Pulse Rate 115 H 118 H 118 H Respiratory Rate 17 18 28 H Blood Pressure 149/85 H 162/82 H 145/76 H Pulse Oximetry 100 100 100 12/27/18 20:30 12/27/18 20:45 12/27/18 21:00 Temperature 98.3 F Pulse Rate 118 H 118 H 121 H Respiratory Rate 19 19 Blood Pressure 155/73 H 140/63 Pulse Oximetry 100 100 100 12/27/18 21:44 12/27/18 22:38 12/28/18 00:00 Temperature 98.3 F 98.0 F Pulse Rate 121 H 121 H 110 H Respiratory Rate 22 20 Blood Pressure 132/72 110/55 L Pulse Oximetry 95 96 12/28/18 04:00 12/28/18 08:00 Temperature 97.7 F 97.4 F L Pulse Rate 101 H 102 H Respiratory Rate 20 18 Blood Pressure 133/69 121/62 Pulse Oximetry 96 97 Intake & Output 12/27/18 12/28/18 12/28/18 18:59 06:59 18:59 Intake Total 3400 / 3400 1154 / 1154 754 / 754 Output Total 2565 / 2565 1050 / 1050 Balance 835 / 835 104 / 104 754 / 754 Weight 79.3 kg Intake: IV 1000 / 1000 754 / 754 754 / 754 NS Inj 1,000 ML @ 70 mls/hr IV. 900 / 900 754 / 754 754 / 754 CONT .[id number] [facility] Rx#:[id number] Ancef Inj 1,000 MG In NS Inj 100 / 100 100 ML @ 100 mls/hr IV.SIG ONCE ONE Rx#:[id number] Anesthesia Amount 2400 / 2400 Intake (Blood Product) Amt 0 / 0 400 / 400 Rbc As-3 Leukoreduced Unit 0 / 0 400 / 400 [id number] Bladder Irrigation Fluid - 0 / 0 Amount Retained Indwelling Urethral Catheter 0 / 0 Output: Urine 1000 / 1000 Estimated Blood Loss 500 / 500 Urine Amount (Catheter) 1065 / 1065 1050 / 1050 Indwelling Urethral Catheter 1065 / 1065 1050 / 1050 Other: Bladder Irrigation Fluid - Amount Instilled Indwelling Urethral Catheter 50 Bladder Irrigation Fluid - Amount Drained Indwelling Urethral Catheter 50 Date of Last Bowel Movement 12/25/18 Constitutional Comments: Alert and oriented x 3 S1S2 CTA b/l Abd soft, some tenderness to palpation around the bladder, Urine in montoya bag is now clear. No edema of exts No focal neuro deficits. Urinary Catheter Management Indwelling Urethral Catheter: Cath placed during this visit: yes Reason for continuing: Hourly intake/output Insertion date: 12/27/18 Insertion time: 19:00 Results Labs CBC & Chem 7: 12/27/18 21:16 12/27/18 15:22 Assessment and Plan (1) Prostate CA: Code(s): C61 - Malignant neoplasm of prostate Status: Acute (2) Mass of ureter: Code(s): N28.9 - Disorder of kidney and ureter, unspecified Status: Acute (3) Gross hematuria: Code(s): R31.0 - Gross hematuria Status: Acute Plan 83-year-old male with a past medical history significant for renal cancer, hypertension, hyperlipidemia, history of prostate cancer and history of stomach cancer presents to the emergency department for the evaluation of pubic pressure. The patient have his left nephrostomy tube replaced yesterday by Dr. Bustillos. He is scheduled to undergo a left nephrectomy on Monday with Dr. Voss. 1. 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 2. Left Renal cancer 3. Hematuria 2/2 #1 4. LOIS 2/2 # 1 S/p Left nephrostomy tube placement on 12/[address] Bustillos. Cystoscopy, evacuation of clots and fulguration of bladder tumor Patient scheduled for a robot-assisted laparoscopic left nephroureterectomy on Monday Serum cr 1.4 on 12/26, 2.17 as of yesterday. Continue IVF, follow up am labs. If no improvement of Cr. tomorrow will consult Nephrology. Avoid nephrotoxic agents. Was on lisinopril at home. Currently held. I will follow up with Dr. Voss today. 5. Hyperchloremic Metabolic Acidosis HCO3 17 today CL elevated. Will d/c NS IVF and switch to LR. Acidosis likely 2/2 elevated CL and LOIS Follow up am labs. Strict ins/outs. If worsening kidney function tomorrow will consult nephrology. 5. HTN/DLD Continue statin. BP currently under control. SCDs, no pharmacotherapy due to hematuria. Progress Note: Quality VTE Deep Vein Thrombosis/Pulmonary Embolism Present on Admission: No
--- NOTE | 2018-12-28 12:58 | P.PNURO ---
Subjective Patient symptoms today: Denies any specific complaints. Reports feeling better than yesterday. Reports no issues with the Shipley catheter. Objective Vital Signs: Vital Signs 12/27/18 17:00 12/27/18 17:15 12/27/18 17:30 Temperature 97.4 F L Pulse Rate 114 H 110 H 106 H Respiratory Rate 12 14 17 Blood Pressure 146/72 H 162/80 H 164/76 H Pulse Oximetry 93 L 99 99 12/27/18 17:45 12/27/18 17:49 12/27/18 18:00 Temperature 97.6 F Pulse Rate 111 H 109 H 109 H Respiratory Rate 16 13 17 Blood Pressure 150/67 H 150/67 H 138/67 Pulse Oximetry 99 100 99 12/27/18 18:15 12/27/18 18:45 12/27/18 19:00 Temperature Pulse Rate 105 H 112 H 111 H Respiratory Rate 15 20 16 Blood Pressure 147/69 H 132/78 146/76 H Pulse Oximetry 100 100 100 12/27/18 19:30 12/27/18 19:35 12/27/18 19:45 Temperature 98.1 F Pulse Rate 113 H 113 H 115 H Respiratory Rate 20 17 Blood Pressure 157/78 H 149/85 H Pulse Oximetry 100 100 100 12/27/18 20:00 12/27/18 20:15 12/27/18 20:30 Temperature Pulse Rate 118 H 118 H 118 H Respiratory Rate 18 28 H 19 Blood Pressure 162/82 H 145/76 H 155/73 H Pulse Oximetry 100 100 100 12/27/18 20:45 12/27/18 21:00 12/27/18 21:44 Temperature 98.3 F 98.3 F Pulse Rate 118 H 121 H 121 H Respiratory Rate 19 22 Blood Pressure 140/63 132/72 Pulse Oximetry 100 100 95 12/27/18 22:38 12/28/18 00:00 12/28/18 04:00 Temperature 98.0 F 97.7 F Pulse Rate 121 H 110 H 101 H Respiratory Rate 20 20 Blood Pressure 110/55 L 133/69 Pulse Oximetry 96 96 12/28/18 08:00 12/28/18 12:00 Temperature 97.4 F L 97.2 F L Pulse Rate 100 H 115 H Respiratory Rate 18 18 Blood Pressure 121/62 139/64 Pulse Oximetry 97 97 Intake & Output 12/27/18 12/28/18 12/28/18 18:59 06:59 18:59 Intake Total 3400 / 3400 1154 / 1154 754 / 754 Output Total 2565 / 2565 1050 / 1050 Balance 835 / 835 104 / 104 754 / 754 Weight 79.3 kg Intake: IV 1000 / 1000 754 / 754 754 / 754 NS Inj 1,000 ML @ 70 mls/hr IV. 900 / 900 754 / 754 754 / 754 CONT .[id number] [facility] Rx#:[id number] Ancef Inj 1,000 MG In NS Inj 100 / 100 100 ML @ 100 mls/hr IV.SIG ONCE ONE Rx#:[id number] Anesthesia Amount 2400 / 2400 Intake (Blood Product) Amt 0 / 0 400 / 400 Rbc As-3 Leukoreduced Unit 0 / 0 400 / 400 [id number] Bladder Irrigation Fluid - 0 / 0 Amount Retained Indwelling Urethral Catheter 0 / 0 Output: Urine 1000 / 1000 Estimated Blood Loss 500 / 500 Urine Amount (Catheter) 1065 / 1065 1050 / 1050 Indwelling Urethral Catheter 1065 / 1065 1050 / 1050 Other: Bladder Irrigation Fluid - Amount Instilled Indwelling Urethral Catheter 50 Bladder Irrigation Fluid - Amount Drained Indwelling Urethral Catheter 50 Date of Last Bowel Movement 12/25/18 Result Diagrams: 12/27/18 21:16 12/27/18 15:22 Medications and IVs: Active Medications Generic Name Dose Route Start Last Admin Trade Name Freq PRN Reason Stop Dose Admin Acetaminophen 650 mg 12/26/18 21:40 Tylenol PO Q4H PRN Temp > 100.4 Al Hydroxide/Mg Hydroxide 30 ml 12/26/18 21:40 Milk Of Magnesia Liq PO Q12H PRN Mild Constipation Bisacodyl 10 mg 12/26/18 21:40 Dulcolax Supp RECTAL DAILY PRN SEVERE CONSITIPATION Hydromorphone HCl 1 mg 12/27/18 12:45 12/28/18 05:54 Dilaudid Pf Inj IV.PUSH 1 mg Q2H PRN Administration SEVERE PAIN 6-10 Lactated Ringer's 1,000 mls @ 84 mls/hr 12/28/18 11:33 Lr 1000 Ml Inj IV.CONT .[id number] [facility] Lactulose 30 ml 02/20/19 21:40 Lactulose Liq PO DAILY PRN SEVERE CONSITIPATION Loratadine 10 mg 12/27/18 12:00 12/28/18 10:06 Claritin PO 10 mg DAILY [facility] Administration Miscellaneous Information 0 each 12/27/18 17:10 [facility] [facility] [place] OTHER 12/28/18 17:09 UNSCH PRN SEE LABEL COMMENTS Ondansetron HCl 4 mg 12/26/18 21:40 12/27/18 12:21 Zofran Inj IV.PUSH 4 mg Q6H PRN Administration NAUSEA OR VOMITING Oxybutynin Chloride 5 mg 12/27/18 09:00 12/28/18 10:06 Ditropan PO 5 mg BID RU[facility] Administration Pravastatin Sodium 20 mg 12/27/18 18:00 Pravachol PO DAILY@1800 [facility] Senna/Docusate Sodium 1 tab 12/27/18 09:00 12/28/18 10:06 Ciara-Colace PO 1 tab BID RUCHI Administration Sennosides 17.2 mg 12/26/18 21:40 Senokot PO Q12H PRN Moderate Constipation Sodium Chloride 2 ml 12/27/18 09:00 12/28/18 10:06 Ns Flush IV.FLUSH 2 ml BID RUCHI Administration Sodium Chloride 2 ml 12/26/18 21:40 Ns Flush IV.FLUSH PRN PRN FLUSH AFTER USING IV ACCESS Objective Remarks: Bladder not distended Shipley catheter draining clear yellow urine Assessment and Plan - Assessment (1) Prostate CA Code(s): C61 - Malignant neoplasm of prostate Status: Acute (2) Mass of ureter Code(s): N28.9 - Disorder of kidney and ureter, unspecified Status: Acute (3) Gross hematuria Code(s): R31.0 - Gross hematuria Status: Acute - Plan Urologic impression: 1. 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 2. Status post fulguration of the bladder wall tumor mass as this was the site of the hematuria with clot formation 3. History prostate cancer status post radiation therapy presently being managed with androgen deprivation therapy Recommendations: 1. Maintain Shipley catheter indwelling to prevent recurrence of the gross hematuria due to bladder distention 2. Discharge home once medically stable with indwelling Shipley catheter to gravity drainage 3. Due to progression of the patient's disease with left bladder wall involvement more aggressive surgical management will be necessary. Patient may ultimately require a left nephroureterectomy in addition to a radical cystoprostatectomy with ileal conduit urinary diversion. Due to patient's age and the fact that he had radiation therapy for his prostate cancer he is more likely to have surgical and postsurgical complications. In lieu of this, I will make arrangements for evaluation and [facility] My office is in the process of expediting this referral and will contact the patient. 4. Dr. John Juan will be covering this weekend and be available as needed.
--- NOTE | 2018-12-28 15:10 | P.DIET ---
Nutritional Evaluation Type of nutrition evaluation: initial Nutrition consult regarding: Diet Evaluation Nutrition screening: Weight Loss > 10 lbs Screening comments: 12/27/18 WLS Subjective Subjective Comments: Pts family members seen at bedside during RD visit. Family member stated pt had poor PO intake for 3 days and that pt had lost wt d/t not eating much. Pt mentioned he did not have any GI symptoms and tolerating his diet. Objective - Diagnosis gross hematuria, urinary retention - Objective Dietitian Reviewed in Medical Record: Current diet, Curent medications, Intake & Output, Labs, Medical history Diet Order: regular Oral Diet Intake Amount: Poor <50% Objective Comments: PMH: gastric CA, high chol, HTN, melanoma, prostate CA Labs: BUN 19, Cr 1.72, estGFR 38, random glucose 110 148 Assessment Assessment: Pt currently at nutritional risk r/t reported unplanned wt loss. Pt on a regular diet and mentioned a poor appetite. Pt had a past medical hx of gastric CA and stated he had specific diet preferences. RD to recommend Ensure Enlive TID as PO supplement for additional nutrition. Encourage PO intake and provide feeding assistance as needed. Continue to monitor PO and supplement intake. Labs reviewed, dietitian following. Recommendations: 1. RD to recommend Ensure Enlive TID as PO supplement for additional nutrition 2. Continue to monitor PO and supplement intake 3. Encourage PO intake and provide feeding assistance as needed 3. Dietitian following Dietitian to Monitor: Lab values, Renal labs, Glucose level, Intake & Output, Diet tolerance, Weight change, PO Intake, Medical course
[2018-12-29] MEDS: HYDROmorphone PF Inj 1 MG/ML Ampul IV.PUSH PRN ×5 (01:23→21:20)
[2018-12-29 06:23] LABS: Hematocrit 24.8 % (39.0-51.0); Hemoglobin 8.4 gm/dL (13.0-17.0)
[2018-12-29 07:11] LABS: Calcium 7.9 mg/dL (8.5-10.1); Potassium 3.9 meq/L (3.5-5.1)
[2018-12-29] MEDS: Senna/Docusate Sodium 8.6/50 MG Tablet PO SCH ×2 (09:33→21:20)
[2018-12-29] MEDS: Loratadine 10 MG Tablet PO SCH (10:41)
--- NOTE | 2018-12-29 16:17 | P.PNIM ---
Subjective Interval history: patient laying down in bed. No acute distress. and friend at bedside. No other complaints. Physical Exam Vital signs: Vital Signs 12/28/18 18:12 12/28/18 20:00 12/29/18 00:00 Temperature 98.0 F 98.1 F Pulse Rate 104 H 96 H Respiratory Rate 18 20 20 Blood Pressure 129/58 L 127/70 Pulse Oximetry 96 95 12/29/18 03:57 12/29/18 08:00 12/29/18 12:00 Temperature 97.9 F 98.2 F 98.1 F Pulse Rate 97 H 103 H 109 H Respiratory Rate 18 17 17 Blood Pressure 125/63 136/64 135/64 Pulse Oximetry 93 L 93 L 91 L Intake & Output 12/28/18 12/29/18 12/29/18 18:59 06:59 18:59 Intake Total 1229 / 1229 0 / 0 1800 / 1800 Output Total 1300 / 1300 Balance 1229 / 1229 -1300 / -1300 1800 / 1800 Weight 79.8 kg Intake: IV 754 / 754 0 / 0 NS Inj 1,000 ML @ 70 mls/hr IV. 754 / 754 CONT .[id number] [facility] Rx#:[id number] Oral 475 / 475 Other 1800 / 1800 Output: Urine Amount (Catheter) 1300 / 1300 Indwelling Urethral Catheter 1300 / 1300 Other: # Voids 1,225 # Bowel Movements 0 Narrative: S1S2 CTA b/l Abd soft, some tenderness to palpation around the bladder, Urine in montoya bag is now clear. Left nephrostomy tube in place No edema of exts No focal neuro deficits. Urinary Catheter Management Indwelling Urethral Catheter: Cath placed during this visit: yes Reason for continuing: Hourly intake/output Insertion date: 12/27/18 Insertion time: 19:00 Results Labs CBC & Chem 7: 12/29/18 05:57 12/29/18 05:57 Assessment and Plan (1) Prostate CA: Code(s): C61 - Malignant neoplasm of prostate Status: Acute (2) Mass of ureter: Code(s): N28.9 - Disorder of kidney and ureter, unspecified Status: Acute (3) Gross hematuria: Code(s): R31.0 - Gross hematuria Status: Acute Plan 83-year-old male with a past medical history significant for renal cancer, hypertension, hyperlipidemia, history of prostate cancer and history of stomach cancer presents to the emergency department for the evaluation of pubic pressure. The patient have his left nephrostomy tube replaced yesterday by Dr. Bustillos. He is scheduled to undergo a left nephrectomy on Monday with Dr. Voss. 12/29/18 Patient evaluated today. Urology also evaluated the patient. 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 As per urology due to the progression of the patient's disease with left bladder wall involvement he will require more aggressive surgical intervention. 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 A referral has been made to [facility]. Once medically stable he will be discharged with an indwelling montoya catheter to gravity drainage. I will discuss the case with urology. LOIS improved, serum cr normal today. Continue ivf. Trops elevated 0.33, will repeat trops. Cardiology consulted to evaluate. I would appreciate their recs. Hyperchloremic acidosis has resolved after changing IVF to LR. PT consulted 1. 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 2. Left Renal cancer 3. Hematuria 2/2 #1 4. LOIS 2/2 # 1 S/p Left nephrostomy tube placement on 12/[address] Bustillos. Cystoscopy, evacuation of clots and fulguration of bladder tumor Patient scheduled for a robot-assisted laparoscopic left nephroureterectomy on Monday Serum cr 1.4 on 12/26, 2.17 as of yesterday. Continue IVF, follow up am labs. If no improvement of Cr. tomorrow will consult Nephrology. Avoid nephrotoxic agents. Was on lisinopril at home. Currently held. I will follow up with Dr. Voss today. 5. Hyperchloremic Metabolic Acidosis HCO3 17 today CL elevated. Will d/c NS IVF and switch to LR. Acidosis likely 2/2 elevated CL and LOIS Follow up am labs. Strict ins/outs. If worsening kidney function tomorrow will consult nephrology. 5. HTN/DLD Continue statin. BP currently under control. SCDs, no pharmacotherapy due to hematuria. Progress Note: Quality VTE Deep Vein Thrombosis/Pulmonary Embolism Present on Admission: No
--- NOTE | 2018-12-29 20:36 | ECG ---
Date Performed: 12/29/2018 Time Performed: 19:03:12 PTAGE: 83 years EKG: Sinus rhythm WITH FREQUENT SUPRAVENTRICULAR PREMATURE COMPLEXES POSSIBLE RIGHT VENTRICULAR CONDUCTION DELAY INFER IOR MYOCARDIAL INFARCTION, OLD ABNORMAL ECG PREVIOUS TRACING : 12/27/2018 19.07 Since the previous tracing, no significant change noted DOCTOR: Vania Correa Interpretating Date/Time 12/29/2018 20:35:43
[2018-12-30 00:15] LABS: Calcium 8.4 mg/dL (8.5-10.1); Magnesium 2.2 mg/dL (1.5-2.5); Potassium 3.6 meq/L (3.5-5.1)
[2018-12-30 00:32] LABS: Troponin I 1.64 ng/mL (0.02-0.05)
[2018-12-30] MEDS: HYDROmorphone PF Inj 1 MG/ML Ampul IV.PUSH PRN ×5 (03:19→20:15)
[2018-12-30 05:59] LABS: Baso % (Auto) 0.5 % (0.0-2.0); Eos # (Auto) 0.2 th/mm3 (0.0-0.4); Eos % (Auto) 2.5 % (0.0-4.0); Hematocrit 25.3 % (39.0-51.0); Hemoglobin 8.6 gm/dL (13.0-17.0); Lymph # (Auto) 1.1 th/mm3 (1.0-4.8); Lymph % (Auto) 12.2 % (9.0-44.0); Mean Corpuscular HGB Conc 33.8 % (32.0-36.0); Mean Corpuscular Hemoglobin 31.1 pg (27.0-34.0); Mean Corpuscular Volume 91.8 fL (80.0-100.0); Mean Platelet Volume 6.5 fL (7.0-11.0); Mono % (Auto) 10.7 % (0.0-8.0); Neut # (Auto) 6.9 th/mm3 (1.8-7.7); Neut % (Auto) 74.1 % (16.0-70.0); Platelet Count 307 th/mm3 (150-450); Red Blood Count 2.75 mil/mm3 (4.50-5.90); Red Cell Distribution Width 14.1 % (11.6-17.2); White Blood Count 9.3 th/mm3 (4.0-11.0)
[2018-12-30] MEDS: Loratadine 10 MG Tablet PO SCH (08:28)
[2018-12-30] MEDS: Senna/Docusate Sodium 8.6/50 MG Tablet PO SCH ×2 (08:28→20:14)
--- NOTE | 2018-12-30 11:18 | P.PNIM ---
Subjective Interval history: Patient laying down in bed. In no acute distress. No specific complaints from him this morning. Physical Exam Vital signs: Vital Signs 12/29/18 12:00 12/29/18 16:00 12/29/18 20:00 Temperature 98.1 F 98.1 F 98.2 F Pulse Rate 94 H 94 H 101 H Respiratory Rate 17 16 20 Blood Pressure 135/64 129/67 137/65 Pulse Oximetry 91 L 94 L 94 L 12/29/18 21:17 12/30/18 00:00 12/30/18 01:00 Temperature 97.9 F 98.1 F Pulse Rate 91 H 100 H 105 H Respiratory Rate 20 22 Blood Pressure 147/79 H 145/83 H Pulse Oximetry 95 94 L 12/30/18 02:00 12/30/18 03:00 12/30/18 04:00 Temperature 98.1 F 98.3 F 98.1 F Pulse Rate 103 H 105 H 94 H Respiratory Rate 16 20 18 Blood Pressure 159/92 H 176/87 H 155/85 H Pulse Oximetry 96 96 94 L 12/30/18 05:00 12/30/18 06:00 12/30/18 08:00 Temperature 97.9 F 97.6 F 98 F Pulse Rate 97 H 94 H 104 H Respiratory Rate 20 20 16 Blood Pressure 150/73 H 155/79 H 164/80 H Pulse Oximetry 95 93 L 94 L Intake & Output 12/29/18 12/30/18 12/30/18 18:59 06:59 18:59 Intake Total 1999 / 1999 480 / 480 320 / 320 Output Total 210 / 210 1725 / 1725 Balance 1790 / 1790 -1245 / -1245 320 / 320 Weight 77.8 kg Intake: Oral 200 / 200 480 / 480 320 / 320 Other 1800 / 1800 Output: Urine 210 / 210 Urine Amount (Catheter) 1650 / 1650 Indwelling Urethral Catheter 1650 / 1650 Urine Amount (Stoma) 75 / 75 Nephrostomy Tube 75 / 75 Other: # Urine Diapers 1 Date of Last Bowel Movement 12/25/18 12/30/18 # Bowel Movements 1 Narrative: S1S2 CTA b/l Abd soft, Left nephrostomy tube in place, Urine in montoya bag is yellow, hematuria improved. Left nephrostomy tube in place No edema of exts No focal neuro deficits. Urinary Catheter Management Indwelling Urethral Catheter: Cath placed during this visit: yes Reason for continuing: Hourly intake/output Insertion date: 12/27/18 Insertion time: 19:00 Results Labs CBC & Chem 7: 12/30/18 04:42 12/29/18 23:23 Assessment and Plan (1) Prostate CA: Code(s): C61 - Malignant neoplasm of prostate Status: Acute (2) Mass of ureter: Code(s): N28.9 - Disorder of kidney and ureter, unspecified Status: Acute (3) Gross hematuria: Code(s): R31.0 - Gross hematuria Status: Acute Plan 83-year-old male with a past medical history significant for renal cancer, hypertension, hyperlipidemia, history of prostate cancer and history of stomach cancer presents to the emergency department for the evaluation of pubic pressure. The patient have his left nephrostomy tube replaced yesterday by Dr. Bustillos. He is scheduled to undergo a left nephrectomy on Monday with Dr. Voss. 12/30/18 Patient evaluated today. Vitals and labs reviewed. 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 As per urology due to the progression of the patient's disease with left bladder wall involvement he will require more aggressive surgical intervention. 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 A referral has been made to [facility]. Once medically stable he will be discharged with an indwelling montoya catheter to gravity drainage. I discussed the case with Dr. Juan today who is covering for Urology for the weekend. LOIS improved, serum cr normal today. Continue ivf. Trops elevated 0.33, repeat increased and peaked at 1.6. No aspirin started for now, patient presented with a significant amount of hematuria and anemia. No chest pain, no significant findings on EKG. Cardiology consulted, I will follow up with their recs. Evaluation by cardiology pending. Hyperchloremic acidosis has resolved after changing IVF to LR. PT consulted Patient is hypertensive since yesterday. Norvasc started. Monitor blood pressure and adjust meds as needed. 1. 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 2. Left Renal cancer 3. Hematuria 2/2 #1 4. LOIS 2/2 # 1 S/p Left nephrostomy tube placement on 12/[address] Bustillos. Cystoscopy, evacuation of clots and fulguration of bladder tumor Patient scheduled for a robot-assisted laparoscopic left nephroureterectomy on Monday Serum cr 1.4 on 12/26, 2.17 as of yesterday. Continue IVF, follow up am labs. If no improvement of Cr. tomorrow will consult Nephrology. Avoid nephrotoxic agents. Was on lisinopril at home. Currently held. I will follow up with Dr. Voss today. 5. Hyperchloremic Metabolic Acidosis HCO3 17 today CL elevated. Will d/c NS IVF and switch to LR. Acidosis likely 2/2 elevated CL and LOIS Follow up am labs. Strict ins/outs. If worsening kidney function tomorrow will consult nephrology. 5. HTN/DLD Continue statin. BP currently under control. SCDs, no pharmacotherapy due to hematuria. Progress Note: Quality VTE Deep Vein Thrombosis/Pulmonary Embolism Present on Admission: No
[2018-12-30] MEDS: amLODIPine 5 MG Tablet PO SCH (13:09)
[2018-12-30] MEDS ORDERED: Sod Phosphate/Sod Biphosphate (Adult) Enema 133 ML Bottle RECTAL ONE (14:00)
--- NOTE | 2018-12-30 14:00 | MB ---
cc: Olivier Corrales MD DATE: 12/30/2018 REASON FOR CONSULTATION: Abnormal troponin. HISTORY OF PRESENT ILLNESS: The patient is a pleasant 83-year-old gentleman who presented with gross hematuria as well as abdominal pain. 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 As part of his workup, troponins were drawn, which are elevated. The patient denies any significant cardiac symptoms such as chest pain, shortness of breath, lightheadedness, dizziness. The patient is very weak and notes constipation as his primary symptom currently. PAST MEDICAL HISTORY: Gastric cancer, melanoma, prostate cancer, hypercholesterolemia, hydronephrosis, hypertension. Urologic mass as above. CURRENT MEDICATIONS: 1. Tylenol. 2. Claritin. 3. Pravachol. ALLERGIES: NO KNOWN DRUG ALLERGIES. PHYSICAL EXAMINATION: VITAL SIGNS: Afebrile, pulse 104, respiratory rate 60, BP 164/80, saturating 94 on room air. GENERAL: Pleasant elderly/frail gentleman in no distress. NECK: No JVD. LUNGS: Clear to auscultation bilaterally. CARDIOVASCULAR: Regular rate and rhythm. No significant murmurs appreciated. ABDOMEN: Benign. EXTREMITIES: No edema. LABORATORY DATA: Sodium 140, potassium 3.6, chloride 106, bicarbonate 26, BUN 10, creatinine 0.89, glucose 82. Troponins peaked at 1.64, now 1.57. INR is 1.2. White count 9.3, down from 25, hematocrit 25.3, platelets 307. EKG shows sinus rhythm with occasional PVCs. No acute ST or T-wave changes, but nonspecific changes are present. IMPRESSION: Elevated troponin. The patient does have a notably elevated troponin of uncertain etiology. He has absolutely no chest pain currently or in the past. His EKG has some nonspecific changes, but shows nothing acute. I discussed this at length with the patient and offered workup strategies including a stress test and/or cardiac catheterization. Given the patient's multiple other medical problems and lack of cardiac symptoms, they wish to pursue medical therapy only, which seems appropriate. Theoretically, this could become more complicated if he is asked to undergo a significant surgery and preoperative cardiac clearance is requested. At this time, I believe my position would remain the same and would consider him a high risk for procedure, but it is unlikely that a cardiac catheterization and subsequent potential intervention would benefit him. Such an intervention would require antiplatelet medication, which would only prolong the timeframe for which he could undergo surgery. Regardless, at the moment, no surgery here is planned, according to the family. Thus, my recommendation would be to continue him on medical therapy including a statin, beta goergia and potentially aspirin once his hematuria issue resolves. I will sign off, but will be available as needed. Please call with any questions. Thank you again for the opportunity to participate in this patient's care. MD MARCIA Tam/anurag , 11:17 AM , 11:25 AM
[2018-12-30] MEDS: Metoprolol Tartrate 25 MG Tablet PO SCH (20:14)
[2018-12-31] MEDS: HYDROmorphone PF Inj 1 MG/ML Ampul IV.PUSH PRN ×3 (00:20→08:27)
[2018-12-31] MEDS: Senna/Docusate Sodium 8.6/50 MG Tablet PO SCH (08:29)
[2018-12-31] MEDS: amLODIPine 5 MG Tablet PO SCH (08:29)
[2018-12-31] MEDS: Loratadine 10 MG Tablet PO SCH (08:29)
[2018-12-31] MEDS: Metoprolol Tartrate 25 MG Tablet PO SCH (08:29)
[2018-12-31 09:39] VITALS: TEMP 98; O2SAT 96
--- NOTE | 2018-12-31 10:45 | P.DS ---
DS: Providers Date of admission: 12/26/18 22:19 Primary care physician: UNKNOWN Consults: 12/26/18 21:40 Consult to Urology Routine Consulting Provider: Damion Voss Reason for Consultation: hematuria s/p nephrostomy placement Notified:: Service Spoke with:: Josie Date Notified:: 12/26/18 Time Notified:: 21:51 Comments:: D41 Ordering Provider: INDER 12/29/18 16:09 Consult to Cardiology Routine Consulting Provider: Olivier Corrales Does the patient have a Butadiene Converter Utility Operator who follows them?: No Preferred Pantograph Transferrer:: Continuity Writer Physician Reason for Consultation: Cardiology consult Notified:: Service Spoke with:: SINCERE Date Notified:: 12/29/18 Time Notified:: 16:23 Ordering Provider: ERIKA DS: Diagnosis Discharge Diagnosis (1) Prostate CA: Status: Acute (2) Mass of ureter: Status: Acute (3) Gross hematuria: Status: Acute DS: Summary 83-year-old male with a past medical history significant for renal cancer, hypertension, hyperlipidemia, history of prostate cancer and history of stomach cancer presents to the emergency department for the evaluation of pubic pressure. The patient have his left nephrostomy tube replaced yesterday by Dr. Bustillos. He is scheduled to undergo a left nephrectomy on Monday with Dr. Voss. 12/30/18 Patient evaluated today. Vitals and labs reviewed. 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 Patient also has a left nephrostomy tube. As per urology due to the progression of the patient's disease with left bladder wall involvement he will require more aggressive surgical intervention. 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 A referral has been made to [facility], [place]. Patient has been cleared for discharge by Dr. Voss. He will need to follow up with Dr. Voss in his clinic within one week. Hematuria has resolved and Hgb is stable at 8.6 as of yesterday. As per Dr. Voss's recs the patient will be discharged with the montoya catheter in place. He was advised to return to the ED if he begins to experience hematuria or starts having fevers/chills. Instructions on changing the montoya bag were given to the patient. LOIS improved, serum cr is now normal. Patient has hypertension and is currently on norvasc, metoprolol started by Cardiology. Patient has a slight elevation in trop on admit that then peaked at 1.6 then downtrended. Cardiology evaluated the patient. EKG did not show any specific findings. No chest pain or sob prior to or during the hospitalization. Cardiology discussed workup for the elevated trops including a stress test and possibly a cardiac cath. The patient and the family wanted to pursue medical management. Statin and metoprolol scripts were given to the patient. Aspirin was not started as the patient had hematuria and was symptomatically anemic on initial arrival to the hospital. As per cardiology the patient is at high risk for a major surgical procedure given the elevation in troponins. If the patient did have a cardiac cath and needed to be on aspirin this could potentially prolong his surgery date. I recommend the patient follow up with Dr. Voss as well as Cardiology once he is discharged. He will be given a front wheel walker prior to discharge. Patient and family refused a SNF. They want to go home with home health. 1. 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 2. Left Renal cancer 3. Hematuria / #1 4. LOIS 2/2 # 1 S/p Left nephrostomy tube placement on 12/[address] Bustillos. Cystoscopy, evacuation of clots and fulguration of bladder tumor Patient scheduled for a robot-assisted laparoscopic left nephroureterectomy on Monday Serum cr 1.4 on 12/26, 2.17 as of yesterday. Continue IVF, follow up am labs. If no improvement of Cr. tomorrow will consult Nephrology. Avoid nephrotoxic agents. Was on lisinopril at home. Currently held. I will follow up with Dr. Voss today. 5. Hyperchloremic Metabolic Acidosis HCO3 17 today CL elevated. Will d/c NS IVF and switch to LR. Acidosis likely 2/2 elevated CL and LOIS Follow up am labs. Strict ins/outs. If worsening kidney function tomorrow will consult nephrology. 5. HTN/DLD Continue statin. BP currently under control. Time Spent with Patient Total time spent providing and/or coordinating discharge services: Greater than 30 minutes Quality: VTE Deep Vein Thrombosis/Pulmonary Embolism Present on Admission: No Exam Narrative Exam Narrative: S1S2 CTA b/l Abd soft, Left nephrostomy tube in place, Urine in montoya bag is yellow, hematuria improved. Left nephrostomy tube in place No edema of exts No focal neuro deficits. Results Impressions ITS Impressions Abdomen/Pelvis CT 12/26/18 19:11 CONCLUSION: 1. Grossly stable left sided nephrostomy catheter with atrophic left kidney. 2. Bladder is moderately distended despite Montoya catheter and contains high density material likely reflecting blood products as contrast injected for nephrostomy exchange earlier today likely did not extend to the bladder in such volume. A 4.0 x 3.5 cm mass in the region of the left UVJ persists. 3. Additional stable ancillary findings, as above. Discharge Plan Discharge Disposition Patient Disposition: Disch W/Home Health Service Discharge Order Discharge Orders: Discharge Order (Routine); Ordered 12/31/18 Ordered By: Kareem Nelson ED Use Only Admit Order (Routine); Ordered 12/26/18 Ordered By: Raven Mccurdy Physicians Team ED Provider: Nathalie Dominguez ED Midlevel Provider: Raven Mccurdy Primary Care Provider: UNKNOWN, Attending Provider: Kareem Nelson Other Providers: Damion Voss ; Olivier Corrales Rxs /Orders / Referrals /Forms Prescriptions: New amlodipine [Norvasc] 5 mg Tablet 5 mg PO DAILY Qty: 30 RF: 0 oxybutynin chloride 5 mg Tablet 5 mg PO BID Qty: 60 RF: 0 metoprolol tartrate 25 mg Tablet 25 mg PO BID Qty: 60 RF: 0 atorvastatin 40 mg tablet 40 mg PO QPM Qty: 30 RF: 0 Continue loratadine 10 mg Tablet 10 mg PO DAILY RF: 0 Discontinued lisinopril 20 mg Tablet 20 mg PO DAILY RF: 0 simvastatin 10 mg Tablet 10 mg PO QPM RF: 0 Ambulatory Orders / Order Sets / DME: Walker With Front Wheels (1 each) (Routine) Location: Determined by Patient Ordered By: Kareem Nelson Referrals: Damion Voss MD [UROLOGY] - See Instructions Olivier Corrales MD [Physician] - See Instructions UNKNOWN, [Primary Care Provider] - See Instructions Discharge Instructions Patient Printed Instructions: Cystoscopy (DC) Additional Instructions: Patient will follow up with Dr. Voss within one week. Ultimately will be transferred to [facility] in [place] for his surgical procedure. Dr. Voss has already started referral to their facility. Follow up with PCP in one week. Outpt follow up with Cardiology in 1-2 weeks. Discharge Interventions Interventions: Discharge Planning - Case Management Last Done: 12/28/18 17:59 Status ED Status: Left Department
[2018-12-31 13:12] VITALS: BP 136/67; PULSE 88; RESP 21
== END 2018-12-31 13:40 | disposition home health service (06) | DRG 669 ==
LOC: NEPD 17:08 → NEDA 17:08 → NEPFCDU 12-27 00:20 → N07 12-27 15:46
PROVIDERS: ADMIT Hospitalist; ATTEND Hospitalist
DX: Z82.49 Family history of ischemic heart disease and other diseases of the circulatory system; Z85.820 Personal history of malignant melanoma of skin; Z92.3 Personal history of irradiation; I10 Essential (primary) hypertension; Z85.028 Personal history of other malignant neoplasm of stomach; N32.89 Other specified disorders of bladder; C61 Malignant neoplasm of prostate; N26.1 Atrophy of kidney (terminal); I49.3 Ventricular premature depolarization; E78.00 Pure hypercholesterolemia, unspecified; E78.5 Hyperlipidemia, unspecified; Z87.891 Personal history of nicotine dependence; C64.2 Malignant neoplasm of left kidney, except renal pelvis; C67.9 Malignant neoplasm of bladder, unspecified; R74.8 Abnormal levels of other serum enzymes; N17.9 Acute kidney failure, unspecified; N13.1 Hydronephrosis with ureteral stricture, not elsewhere classified; Z93.6 Other artificial openings of urinary tract status; Z79.899 Other long term (current) drug therapy; R31.0 Gross hematuria; K59.00 Constipation, unspecified; E87.2 Acidosis
CPT/HCPCS: 36430; 50435; 51798; 74176; 76937; 80048; 80053; 81001; 82040; 82550; 82805; 83735; 84484; 85014; 85018; 85025; 85384; 85610; 85730; 86850; 86900; 86901; 86923; 90774; 90775; 90776; 90784; 93005; 96374; 96375; 96376; 99152; 99285; A4646; C1729; C1758; C1769; C2617; C8952; J0690; J1170; J1956; J2250; J2270; J2370; J2405; J2704; J2710; J3010; J7030; J7040; J7120; P9016; Q9950; Q9965; Q9967